=== PATIENT | male | born 1985 | race Caucasian/White ===

== ENCOUNTER 2016-06-24 20:02 | Emergency (ER) | payer SELFPAY ==
[2016-06-24 20:25] VITALS: BP 158/78; PULSE 98; RESP 16; TEMP 96.9
[2016-06-24] MEDS ORDERED: IBUPROFEN 400 MG TAB PO STA (21:00)
--- NOTE | 2016-06-24 21:02 | ED ---
General Adult HPI - General Chief complaint: ENT Stated complaint: Ear Pain Time Seen by Provider: 06/24/16 20:40 Source: patient, RN notes reviewed Mode of arrival: ambulatory Limitations: no limitations - History of Present Illness Initial comments: This is a 30-year-old male presents with bilateral ear pain 2 days. Patient states the right ear started hurting yesterday and the left one started hurting today. Patient denies any drainage from the ears. Patient states his brother is sick with a double ear infection and was put on Augmentin after a failed course of amoxicillin. Patient denies any fever/chills, nausea/vomiting/ diarrhea. Patient admits to some congestion but denies any cough. Patient denies any recent shortness breath, chest pain, abdominal pain, nausea/vomiting/ diarrhea, back pain, numbness, tingling, hematuria, headache, or visual changes , or any other complaints. - Related Data Home Medications Medication Instructions Recorded Confirmed Brexpiprazole [Rexulti] 3 mg PO DAILY 06/24/16 06/24/16 Previous Rx's Medication Instructions Recorded Amoxic-Pot Clav 875-125Mg 1 tab PO Q12HR 7 Days 06/24/16 [Augmentin 875-125] Allergies Allergy/AdvReac Type Severity Reaction Status Date / Time Sulfa (Sulfonamide Allergy Unknown Verified 06/24/16 20:32 Antibiotics) Review of Systems ROS Statement: Those systems with pertinent positive or pertinent negative responses have been documented in the HPI. ROS Other: All systems not noted in ROS Statement are negative. Past Medical History Additional Past Medical History / Comment(s): heart murmer, VSD History of Any Multi-Drug Resistant Organisms: None Reported Past Surgical History: Orthopedic Surgery Past Psychological History: Anxiety Smoking Status: Current every day smoker Past Alcohol Use History: None Reported Past Drug Use History: Marijuana General Exam - General Exam Comments Initial Comments: General: The patient is awake and alert, in no distress, and does not appear acutely ill. Eye: Pupils are equal, round and reactive to light, extra-ocular movements are intact. No nystagmus. There is normal conjunctiva bilaterally. No signs of icterus. Ears: Bilateral tympanic membranes are erythematous, dull and bulging consistent with otitis media. Normal external ear canals. Nose: Nasal turbinates are slightly erythematous but clear of drainage. Mouth and throat: There are moist mucous membranes and no oral lesions. Neck: The neck is supple, there is no tenderness or JVD. Cardiovascular: There is a regular rate and rhythm. No murmur, rub or gallop is appreciated. Respiratory: Lungs are clear to auscultation, respirations are non-labored, breath sounds are equal. No wheezes, stridor, rales, or rhonchi. Musculoskeletal: Normal ROM, no tenderness. Strength 5/5. Sensation intact. Radial pulses equal bilaterally 2+. Neurological: A&O x 3. CN II-XII intact, There are no obvious motor or sensory deficits. Coordination appears grossly intact. Speech is normal. Skin: Skin is warm and dry and no rashes or lesions are noted. Psychiatric: Cooperative, appropriate mood & affect, normal judgment. Limitations: no limitations Course Vital Signs 06/24/16 20:24 Temperature 96.9 F L Pulse Rate 98 Respiratory 16 Rate Blood Pressure 158/78 O2 Sat by Pulse 99 Oximetry Medical Decision Making - Medical Decision Making Is a 30-year-old male who presents with bilateral otalgia. On physical exam bilateral tympanic membranes are erythematous, bulging and dull consistent with acute otitis media. Patient is afebrile in the EC. Discussed the patient that will be put on a course of Augmentin. Discussed [id number] Tylenol and Motrin as needed for any pain or fever symptoms. Patient was given a dose of ibuprofen in the EC today for pain. Discussed that patient should follow up with PCP in one to 2 days or return to the EC for any worsening symptoms or for any further concerns. Patient was receptive to this plan and patient will be discharged home. Disposition Clinical Impression: Acute otitis media Disposition: HOME SELF-CARE Condition: Good Instructions: Earache (ED) Additional Instructions: Please finish entire course of antibiotics. Please use [id number] Tylenol and/or Motrin as needed for any pain. Please use medication as discussed. Please follow-up with family doctor in the next 2 days of symptoms have not improved. Please return to emergency room if the symptoms increase or worsen or for any other concerns. Prescriptions: Amoxic-Pot Clav 875-125Mg [Augmentin 875-125] 1 tab PO Q12HR 7 Days Referrals: Isaak Caldwell MD [Primary Care Provider] - 1-2 days Time of Disposition: 21:08
== END 2016-06-24 21:13 | disposition home or self-care (01) ==
LOC: EC 20:02
DX: H66.93 Otitis media, unspecified, bilateral (principal); Z79.899 Other long term (current) drug therapy; Z88.2 Allergy status to sulfonamides; F17.200 Nicotine dependence, unspecified, uncomplicated; F41.9 Anxiety disorder, unspecified
CPT/HCPCS: 99282

== ENCOUNTER 2016-11-02 16:35 | Inpatient (IN) | payer BC ==
--- NOTE | 2016-11-02 17:22 | ED ---
Psych HPI - General Chief Complaint: Psychiatric Symptoms Stated Complaint: Suicidal Time Seen by Provider: 11/02/16 16:45 Source: patient, RN notes reviewed Mode of arrival: ambulatory - History of Present Illness Initial Comments: Patient a 31-year-old male presents to the emergency room for psych evaluation. Patient states he has a history of anxiety and psychoaffective disorder with bipolar disorder. Patient states he was started on a new psych medication just a few weeks ago. Patient states that his filed for divorce about 3 weeks ago. Patient states been having increased anxiety over the past few weeks along with suicidal thoughts. Patient states today he was holding a box knife and was thinking about slicing his neck. Patient denies any other suicidal plans or attempts. Patient denies visual or auditory hallucinations. Patient denies homicidal ideations. Patient denies any medical history. Patient denies chest pain, shortness of breath, headache, dizziness, nausea, vomiting, fevers, chills.patient states he smokes a pack a day. Patient denies illicit drug use or alcohol use. - Related Data Home Medications Medication Instructions Recorded Confirmed Brexpiprazole [Rexulti] 3 mg PO DAILY 06/24/16 11/02/16 ALPRAZolam [Xanax] 0.5 mg PO TID PRN 11/02/16 11/02/16 Allergies Allergy/AdvReac Type Severity Reaction Status Date / Time Sulfa (Sulfonamide Allergy Unknown Verified 11/02/16 16:54 Antibiotics) Review of Systems ROS Statement: Those systems with pertinent positive or pertinent negative responses have been documented in the HPI. ROS Other: All systems not noted in ROS Statement are negative. Past Medical History Past Medical History: Hypertension Additional Past Medical History / Comment(s): heart murmer History of Any Multi-Drug Resistant Organisms: None Reported Past Surgical History: Orthopedic Surgery Additional Past Surgical History / Comment(s): knee Past Psychological History: Anxiety, Depression, Schizoaffective Disorder Smoking Status: Current every day smoker Past Alcohol Use History: None Reported Past Drug Use History: Marijuana General Exam - General Exam Comments Initial Comments: sitting in exam room, tearful during exam. Limitations: no limitations General appearance: alert, in no apparent distress Head exam: Present: atraumatic, normocephalic, normal inspection Eye exam: Present: normal appearance ENT exam: Present: normal exam Neck exam: Present: normal inspection Respiratory exam: Present: normal lung sounds bilaterally. Absent: respiratory distress Cardiovascular Exam: Present: regular rate, normal rhythm, normal heart sounds GI/Abdominal exam: Present: soft, normal bowel sounds. Absent: distended, tenderness, guarding, rebound, rigid Extremities exam: Present: normal inspection Back exam: Present: normal inspection Neurological exam: Present: alert, oriented X3, CN II-XII intact, normal gait Psychiatric exam: Present: normal affect, depressed Skin exam: Present: warm, dry, intact, normal color. Absent: rash Course Vital Signs 11/02/16 16:39 Temperature 99.4 F Pulse Rate 78 Respiratory 18 Rate Blood Pressure 155/80 O2 Sat by Pulse 97 Oximetry Medical Decision Making - Medical Decision Making patient is a 31-year-old male since emergency room for psych evaluation. Patient is medically cleared to be evaluated by psych. Patient evaluated by psych and does meet admission criteria at this time. - Lab Data Lab Results 11/02/16 Range/Units 16:51 Urine Opiates Screen Not Detected (NotDetected) Ur Oxycodone Screen Not Detected (NotDetected) Urine Methadone Screen Not Detected (NotDetected) Ur Propoxyphene Screen Not Detected (NotDetected) Ur Barbiturates Screen Not Detected (NotDetected) U Tricyclic Antidepress Not Detected (NotDetected) Ur Phencyclidine Scrn Not Detected (NotDetected) Ur Amphetamines Screen Not Detected (NotDetected) U Methamphetamines Scrn Not Detected (NotDetected) U Benzodiazepines Scrn Not Detected (NotDetected) Urine Cocaine Screen Not Detected (NotDetected) U Marijuana (THC) Screen Not Detected (NotDetected) Disposition Clinical Impression: Schizoaffective disorder, Suicidal ideation Disposition: ADMITTED IP TO THIS HOSP Condition: Stable Decision Date: 11/02/16
[2016-11-02] MEDS ORDERED: NICOTINE 21MG/24HR PATCH TRANSDERM STA (18:22)
[2016-11-02] MEDS ORDERED: MAGNESIUM HYDROXIDE 2,400 MG/10 ML CUP PO PRN (19:44)
[2016-11-02] MEDS ORDERED: ACETAMINOPHEN TAB 325 MG TAB PO PRN (19:44)
[2016-11-02] MEDS ORDERED: LORazepam 1 MG TAB PO PRN (19:44)
[2016-11-02] MEDS ORDERED: MAG HYDROX/AL HYDROX/SIMETH 30 ML CUP PO PRN (19:44)
[2016-11-02] MEDS ORDERED: ZIPRASIDONE 20 MG VIAL IM PRN (19:46)
[2016-11-02] MEDS ORDERED: LORazepam 2 MG/ML SYRINGE IM PRN (19:46)
[2016-11-02] MEDS ORDERED: MD COMMUNICATION TO PHARMACY 1 EACH MISC PO PRN (19:47)
[2016-11-03] MEDS: NICOTINE POLACRILEX 2 MG GUM BUCCAL PRN ×3 (08:47→20:24)
[2016-11-03 12:12] LABS: Basophils % (A) 0 %; CH 32.4; CHCM 35.2; Eosinophils # (A) 0.1 k/uL (0-0.7); Eosinophils % (A) 2 %; HCT 46.4 % (39.0-53.0); HDW 2.43; Luc # (Auto) 0.16; Luc % (Auto) 2; Lymphocytes # (A) 2.3 k/uL (1.0-4.8); Lymphocytes % (A) 28 %; MCH 31.8 pg (25.0-35.0); MCHC 34.5 g/dL (31.0-37.0); MCV 92.3 fL (80.0-100.0); Mean Platelet Volume 7.1; Monocytes # (A) 0.5 k/uL (0-1.0); Monocytes % (A) 6 %; Neutrophils # (A) 5.1 k/uL (1.3-7.7); Neutrophils % (A) 62 %; RBC 5.03 m/uL (4.30-5.90); RDW 12.9 % (11.5-15.5); WBC 8.2 k/uL (3.8-10.6)
[2016-11-03 12:23] LABS: Anion Gap 11 mmol/L; Blood Urea Nitrogen 11 mg/dL (9-20); Carbon Dioxide 24 mmol/L (22-30); Chloride 108 mmol/L (98-107); Glucose 107 mg/dL (74-99); Non-African American GFR(MDRD) >60 (>60 ml/min/1.73 sqM); Potassium 4.5 mmol/L (3.5-5.1); Sodium 143 mmol/L (137-145)
[2016-11-03] MEDS: REXULTI 3 MG PO SCH (13:40)
[2016-11-03 16:21] VITALS: BMI 33.5
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
[2016-11-04] MEDS: NICOTINE POLACRILEX 2 MG GUM BUCCAL PRN ×5 (09:28→21:46)
[2016-11-04] MEDS: VENLAFAXINE HCL ER 75 MG CAP PO SCH (09:28)
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
[2016-11-04] MEDS: REXULTI 3 MG PO SCH (14:04)
--- NOTE | 2016-11-04 15:35 | P.PN ---
Progress Note - Text INTERVERAL HISTORY:Patient with history of suicidal ideation, was overwhelmed with of 1 year requesting divorce. He was not under the influence, was seated in his car with box brander, called his mother, who called brother who works at same factory. Patient reports he is feeling much better, says he is not suicidal. Knows he must avoid etoh and cannabis. He goes to and has had periods of sobriety up to a year and believes he can do it again. He also admits cannabis was a problem. Patient reports the "delusions" or thoughts he was having about were just that. MENTAL STATUS EXAM:A&OX3, good eye contact, friendly, cooperative. Well groomed in street clothing. Speech normal volume, rate and production. No FARTUN, no FOI, no delusions, soft paranoid ideation. No IOR. Denies auditory/visual hallucinations. No command hallucinations. Mood euthymic, affect full range, normal intensity. No suicidal ideation, no homicidal ideation. A: MDD, recurrent, severe, r/o history of psychosis R/O Schizoaffective disorder, depressed ETOH use severe Marital conflict PLAN: Continue psychiatric inpatient admission. Will increase effexor to 150mg SW will arrange family meeting and then discharge.
[2016-11-05 06:34] VITALS: BP 128/75; PULSE 63; RESP 17; TEMP 97.9
[2016-11-05] MEDS: NICOTINE POLACRILEX 2 MG GUM BUCCAL PRN ×2 (08:42→11:36)
[2016-11-05] MEDS: VENLAFAXINE HCL ER 75 MG CAP PO SCH (08:42)
[2016-11-05] MEDS ORDERED: VENLAFAXINE HCL ER 75 MG CAP PO STA (11:10)
--- NOTE | 2016-11-05 11:46 | P.DS ---
Providers Date of admission: 11/02/16 19:42 Expected date of discharge: 11/05/16 Attending physician: Elizabeth Cantor MD Consults: 11/02/16 19:44 Consult Physician Routine Consulting Provider: Isaak Caldwell Consult Reason/Comments: h and p, eval and tx, r/o metabolic disorder Do you want consulting provider notified?: Yes Primary care physician: Isaak Caldwell Hospital Course: Patient with history of suicidal ideation, was overwhelmed with of 1 year requesting divorce. He was not under the influence, was seated in his car with boxcar weigher, called his mother, who called brother who works at same factory. Patient was started on effexor xr 75mg, tolerated w/o side effects. Mood improved as did his outlook. No thoughts of suicide. Has future oriented plans, wanting to return to work. Deal with the divorce as it comes. Verbalized he must avoid etoh and cannabis. He goes to and has had periods of sobriety up to a year and believes he can do it again. He also admits cannabis was a problem. No delusions/thoughts reported. MENTAL STATUS EXAM:A&OX3, good eye contact, friendly, cooperative. Well groomed in street clothing. Speech normal volume, rate and production. No FARTUN, no FOI, no delusions, soft paranoid ideation. No IOR. Denies auditory/visual hallucinations. No command hallucinations. Mood euthymic, affect full range, normal intensity. No suicidal ideation, no homicidal ideation. A: MDD, recurrent, severe, r/o history of psychosis R/O Schizoaffective disorder, depressed ETOH use severe Marital conflict PLAN: SW spoke to brother, all guns removed from house. Family agree he should come home, [id number] will come for meeting. Continue effexor xr 150mg. Family meeting and then discharge. Pertinent Studies: none Procedures: none Patient Condition at Discharge: Stable Plan - Discharge Summary New Discharge Prescriptions: Venlafaxine HCl ER [Effexor XR] 150 mg PO DAILY #30 cap Discharge Medication List Brexpiprazole [Rexulti] 3 mg PO DAILY 06/24/16 [History] ALPRAZolam [Xanax] 0.5 mg PO TID PRN 11/02/16 [History] Venlafaxine HCl ER [Effexor XR] 150 mg PO DAILY #30 cap 11/05/16 [Rx] Follow up Appointment(s)/Referral(s): Amisha William [Outside] - 11/06/16 11:00 am (w/ Gloria Cherry) Isaak Caldwell MD [Primary Care Provider] - 1-2 days Discharge Disposition: HOME SELF-CARE
[2016-11-06] MEDS ORDERED: VENLAFAXINE HCL ER 150 MG CAP PO SCH (09:00)
== END 2016-11-05 14:08 | disposition home or self-care (01) | DRG 885 ==
LOC: EC 16:35 → 3MHU 19:42
PROVIDERS: ADMIT Psychiatry & Neurology Addiction Medicine; ATTEND Psychiatry & Neurology Addiction Medicine
DX: F33.2 Major depressive disorder, recurrent severe without psychotic features (principal); F25.0 Schizoaffective disorder, bipolar type; R45.851 Suicidal ideations; F17.210 Nicotine dependence, cigarettes, uncomplicated; F12.90 Cannabis use, unspecified, uncomplicated; F25.1 Schizoaffective disorder, depressive type; Z87.820 Personal history of traumatic brain injury
CPT/HCPCS: 80048; 80306; 82075; 84443; 85025